=== PATIENT | female | born 1965 | race Caucasian/White ===

== ENCOUNTER → 2016-09-29 14:42 | Outpatient (CLI) | payer MEDICAID ==
[2014-01-29 07:52] VITALS: BMI 36.8
== END | disposition home or self-care (01) ==
LOC: D.MAMMO
DX: N63 Unspecified lump in breast (principal)

== ENCOUNTER 2017-03-29 05:11 | Day surgery (SDC) | payer MEDICAID ==
[2017-03-29] MEDS ORDERED: ZYRTEC10 MG PO (05:39)
[2017-03-29] MEDS ORDERED: GLUCOPHAGE1000 MG PO (05:40)
[2017-03-29] MEDS ORDERED: ZIAC 5-6.25 MG1 TAB PO (05:41)
[2017-03-29] MEDS ORDERED: WELLBUTRIN SR150 MG PO (05:41)
[2017-03-29] MEDS ORDERED: CELEXA40 MG PO (05:42)
[2017-03-29] MEDS ORDERED: IBUPROFEN400 MG PO (05:42)
[2017-03-29] MEDS ORDERED: OMEPRAZOLE40 MG PO (05:43)
[2017-03-29 06:05] VITALS: BP 115/65; BMI 34.8
[2017-03-29 06:38] LABS: HEMATOCRIT 42.2 % (36.0-48.0); HEMOGLOBIN 14.2 g/dL (12-16); MCH 29.5 pg (26.0-34.0); MCHC 33.6 g/dL (31.0-37.0); MCV 87.6 fL (80.0-100.0); RBC 4.82 10x6/uL (4.00-5.40); RDW 15.6 % (11.5-14.5); WBC 8.2 10x3/uL (4.8-10.8)
[2017-03-29 07:06] LABS: CALC OSMOLALITY 275 mosm/kg (275-300); CALCIUM 8.6 mg/dL (8.5-10.1); CARBON DIOXIDE 26.4 mmol/L (21.0-32.0); CHLORIDE - SERUM 100 mmol/L (98-107); CREATININE - SERUM 0.6 mg/dL (0.6-1.3); GLUCOSE 96 mg/dL (74-106); POTASSIUM - SERUM 4.4 mmol/L (3.5-5.1); SODIUM 139 mmol/L (136-145); UREA NITROGEN 8 mg/dL (7-18); eGFR NON AFRICAN AMERICAN > 90 mL/min (90-120)
--- NOTE | 2017-03-29 09:10 | NUR ---
OPA IN AIRWAY ON ADMIT
--- NOTE | 2017-03-29 09:42 | NUR ---
0915-RECD FROM PACU. ALERT. RESP WITH EASE. DENIES PAIN/NAUSEA. 0930-FULL LIQUID ADA SERVED.
--- NOTE | 2017-03-29 11:02 | NUR ---
1030-D/C HOME VIA WHEELCHAIR WITH SPOUSE.
--- NOTE | 2017-03-29 12:54 | OP ---
PATIENT NAME: AL DASILVA MEDICAL RECORD: [id number] :65 LOCATION:D.OPS ADMISSION DATE: SURGEON: NIRMALA FELIX MD DATE OF OPERATION: 03/29/2017 PREOPERATIVE DIAGNOSIS: Carpal tunnel syndrome of the left wrist. POSTOPERATIVE DIAGNOSIS: Carpal tunnel syndrome of the left wrist. PROCEDURE: Left carpal tunnel release using [place] Light Knife. SURGEON: Nirmala Felix MD ANESTHESIA: General. INTRAOPERATIVE COMPLICATIONS: None. SUMMARY OF PATHOLOGIC FINDINGS: She has a very tight transverse carpal ligament consistent with preoperative diagnosis. OPERATIVE SUMMARY IN DETAIL: After obtaining the appropriate preoperative orthopedic surgery consent as well as anesthetic consultation and clearance, the patient was brought to the operating room and placed on the operating table in supine position. After general laryngeal mask airway was administered, tourniquet was placed to the proximal aspect of the left upper extremity. Left upper extremity was then prepped and draped in routine sterile fashion. The arm was elevated and exsanguinated, and the tourniquet inflated to 250 mmHg. A mid palmar incision was made in line with the fourth metacarpal ray. It was gently taken down to the distal aspect of the transverse carpal ligament. A small incision was made here. Median nerve was identified. Then, under direct visualization using the [place]ringle Light Knife, the entire transverse carpal ligament was resected. Having completed this, the wound was irrigated and closed with 4-0 Prolene with combination of mattress in an interrupted fashion. The area was locally anesthetized with 0.25% Marcaine plain. Sterile dressings were applied. The patient was awakened and taken to the recovery room in stable condition. All final needle and sponge counts were correct. TRANSINT:[id number] Voice Confirmation ID: [id number] DOCUMENT ID: [id number] NIRMALA FELIX MD at 1254 CC: [id number] DICTATION DATE: 03/29/17 1034 BEATER OUT: 03/29/17 1226 [facility] 03/29/[address] [facility] [address] [place] [address]
== END 2017-03-29 10:30 | disposition home or self-care (01) ==
LOC: D.OPS 05:11 → D.PAN 07:30 → D.OPS 07:30
PROVIDERS: Anesthesiology
DX: G56.02 Carpal tunnel syndrome, left upper limb (principal); F17.200 Nicotine dependence, unspecified, uncomplicated; I10 Essential (primary) hypertension; E11.9 Type 2 diabetes mellitus without complications; K21.9 Gastro-esophageal reflux disease without esophagitis; Z01.812 Encounter for preprocedural laboratory examination

== ENCOUNTER 2018-12-23 09:00 | Outpatient (CLI) | payer MEDICAID ==
[~2018-12-23 09:00] MED LIST: CELEXA40 MG PO; GLUCOPHAGE1000 MG PO; IBUPROFEN400 MG PO; OMEPRAZOLE40 MG PO; WELLBUTRIN SR150 MG PO; ZIAC 5-6.25 MG1 TAB PO; ZYRTEC10 MG PO
== END 2018-12-23 10:00 | disposition home or self-care (01) ==
LOC: D.MAMMO 09:00
PROVIDERS: ATTEND Family Medicine
DX: Z12.31 Encounter for screening mammogram for malignant neoplasm of breast (principal)

== ENCOUNTER → 2020-09-12 14:39 | Outpatient (CLI) | payer OTHER | END | disposition home or self-care (01) | LOC: D.MRI 14:39 | PROVIDERS: ATTEND Clinical Nurse Specialist Family Health | DX: S46.002D Unspecified injury of muscle(s) and tendon(s) of the rotator cuff of left shoulder, subsequent encounter (principal) ==